=== PATIENT | female | born 1945 | race Caucasian/White ===

== ENCOUNTER 2020-12-08 11:09 | Outpatient (CLI) | payer MEDICARE | END 2020-12-08 11:10 | disposition home or self-care (01) | LOC: CSHWCC 11:09 | PROVIDERS: ATTEND Nurse Practitioner Family | DX: S31.609A Unspecified open wound of abdominal wall, unspecified quadrant with penetration into peritoneal cavity, initial encounter (principal); E78.5 Hyperlipidemia, unspecified; F32.9 Major depressive disorder, single episode, unspecified; I48.91 Unspecified atrial fibrillation; I50.33 Acute on chronic diastolic (congestive) heart failure; J45.909 Unspecified asthma, uncomplicated; M32.10 Systemic lupus erythematosus, organ or system involvement unspecified; N18.30 Chronic kidney disease, stage 3 unspecified | CPT/HCPCS: 97605; 99212; G0463 ==

== ENCOUNTER 2020-12-15 14:59 | Outpatient (CLI) | payer MEDICARE | END 2020-12-15 15:00 | disposition home or self-care (01) | LOC: CSHWCC 14:59 | PROVIDERS: ATTEND Nurse Practitioner Family | DX: S31.609D Unspecified open wound of abdominal wall, unspecified quadrant with penetration into peritoneal cavity, subsequent encounter (principal); E11.8 Type 2 diabetes mellitus with unspecified complications; E11.22 Type 2 diabetes mellitus with diabetic chronic kidney disease; N18.30 Chronic kidney disease, stage 3 unspecified; E78.5 Hyperlipidemia, unspecified; F32.9 Major depressive disorder, single episode, unspecified; I48.91 Unspecified atrial fibrillation; I50.33 Acute on chronic diastolic (congestive) heart failure; J45.909 Unspecified asthma, uncomplicated; M32.10 Systemic lupus erythematosus, organ or system involvement unspecified | CPT/HCPCS: 97139; G0463; 99213 ==

== ENCOUNTER 2020-12-18 11:03 | Outpatient (CLI) | payer MEDICARE | END 2020-12-18 11:04 | disposition home or self-care (01) | LOC: CSHWCC 11:03 | PROVIDERS: ATTEND Nurse Practitioner Family | DX: S31.609D Unspecified open wound of abdominal wall, unspecified quadrant with penetration into peritoneal cavity, subsequent encounter (principal); I13.0 Hypertensive heart and chronic kidney disease with heart failure and stage 1 through stage 4 chronic kidney disease, or unspecified chronic kidney disease; I50.33 Acute on chronic diastolic (congestive) heart failure; E11.22 Type 2 diabetes mellitus with diabetic chronic kidney disease; N18.30 Chronic kidney disease, stage 3 unspecified; J45.909 Unspecified asthma, uncomplicated; M32.10 Systemic lupus erythematosus, organ or system involvement unspecified; E78.5 Hyperlipidemia, unspecified; F32.9 Major depressive disorder, single episode, unspecified; I48.91 Unspecified atrial fibrillation; E11.8 Type 2 diabetes mellitus with unspecified complications | CPT/HCPCS: 97605 ==

== ENCOUNTER 2020-12-22 11:06 | Outpatient (CLI) | payer MEDICARE | END 2020-12-22 11:07 | disposition home or self-care (01) | LOC: CSHWCC 11:06 | PROVIDERS: ATTEND Nurse Practitioner Family | DX: S31.609D Unspecified open wound of abdominal wall, unspecified quadrant with penetration into peritoneal cavity, subsequent encounter (principal); E78.5 Hyperlipidemia, unspecified; E11.8 Type 2 diabetes mellitus with unspecified complications; F32.9 Major depressive disorder, single episode, unspecified; I50.33 Acute on chronic diastolic (congestive) heart failure; M32.10 Systemic lupus erythematosus, organ or system involvement unspecified; I48.91 Unspecified atrial fibrillation; J45.909 Unspecified asthma, uncomplicated; N18.30 Chronic kidney disease, stage 3 unspecified | CPT/HCPCS: 97139; G0463; 97605; 99212 ==

== ENCOUNTER 2020-12-31 11:21 | Outpatient (CLI) | payer MEDICARE | END 2020-12-31 11:22 | disposition home or self-care (01) | LOC: CSHWCC 11:21 | PROVIDERS: ATTEND Nurse Practitioner Family | DX: S31.609D Unspecified open wound of abdominal wall, unspecified quadrant with penetration into peritoneal cavity, subsequent encounter (principal); I48.91 Unspecified atrial fibrillation; E78.5 Hyperlipidemia, unspecified; E11.8 Type 2 diabetes mellitus with unspecified complications; F32.9 Major depressive disorder, single episode, unspecified; I50.33 Acute on chronic diastolic (congestive) heart failure; J45.909 Unspecified asthma, uncomplicated; M32.10 Systemic lupus erythematosus, organ or system involvement unspecified; N18.30 Chronic kidney disease, stage 3 unspecified | CPT/HCPCS: 97605 ==

== ENCOUNTER 2021-01-05 11:18 | Outpatient (CLI) | payer MEDICARE | END 2021-01-05 11:19 | disposition home or self-care (01) | LOC: CSHWCC 11:18 | PROVIDERS: ATTEND Nurse Practitioner Family | DX: S31.609D Unspecified open wound of abdominal wall, unspecified quadrant with penetration into peritoneal cavity, subsequent encounter (principal); E78.5 Hyperlipidemia, unspecified; F32.9 Major depressive disorder, single episode, unspecified; I48.91 Unspecified atrial fibrillation; I50.33 Acute on chronic diastolic (congestive) heart failure; M32.10 Systemic lupus erythematosus, organ or system involvement unspecified; J45.909 Unspecified asthma, uncomplicated; E11.22 Type 2 diabetes mellitus with diabetic chronic kidney disease; N18.30 Chronic kidney disease, stage 3 unspecified | CPT/HCPCS: 97605 ==

== ENCOUNTER 2021-01-12 12:22 | Outpatient (CLI) | payer MEDICARE | END 2021-01-12 12:23 | disposition home or self-care (01) | LOC: CSHWCC 12:22 | PROVIDERS: ATTEND Nurse Practitioner Family | DX: S31.609D Unspecified open wound of abdominal wall, unspecified quadrant with penetration into peritoneal cavity, subsequent encounter (principal); E11.22 Type 2 diabetes mellitus with diabetic chronic kidney disease; N18.30 Chronic kidney disease, stage 3 unspecified; I50.33 Acute on chronic diastolic (congestive) heart failure; E11.8 Type 2 diabetes mellitus with unspecified complications; E78.5 Hyperlipidemia, unspecified; F32.9 Major depressive disorder, single episode, unspecified; I48.91 Unspecified atrial fibrillation; J45.909 Unspecified asthma, uncomplicated; M32.10 Systemic lupus erythematosus, organ or system involvement unspecified | CPT/HCPCS: 99213; G0463 ==

== ENCOUNTER 2021-01-19 11:31 | Outpatient (CLI) | payer MEDICARE | END 2021-01-19 11:32 | disposition home or self-care (01) | LOC: CSHWCC 11:31 | PROVIDERS: ATTEND Nurse Practitioner Family | DX: S31.609D Unspecified open wound of abdominal wall, unspecified quadrant with penetration into peritoneal cavity, subsequent encounter (principal); I50.33 Acute on chronic diastolic (congestive) heart failure; E11.22 Type 2 diabetes mellitus with diabetic chronic kidney disease; N18.30 Chronic kidney disease, stage 3 unspecified; J45.909 Unspecified asthma, uncomplicated; E78.5 Hyperlipidemia, unspecified; F32.9 Major depressive disorder, single episode, unspecified; I48.91 Unspecified atrial fibrillation; M32.10 Systemic lupus erythematosus, organ or system involvement unspecified; E11.8 Type 2 diabetes mellitus with unspecified complications | CPT/HCPCS: 99213; G0463 ==

== ENCOUNTER 2021-01-26 11:56 | Outpatient (CLI) | payer MEDICARE | END 2021-01-26 11:57 | disposition home or self-care (01) | LOC: CSHWCC 11:56 | PROVIDERS: ATTEND Nurse Practitioner Family | DX: S31.609A Unspecified open wound of abdominal wall, unspecified quadrant with penetration into peritoneal cavity, initial encounter (principal); E11.8 Type 2 diabetes mellitus with unspecified complications; E78.5 Hyperlipidemia, unspecified; F32.9 Major depressive disorder, single episode, unspecified; I48.91 Unspecified atrial fibrillation; I50.33 Acute on chronic diastolic (congestive) heart failure; J45.909 Unspecified asthma, uncomplicated; M32.10 Systemic lupus erythematosus, organ or system involvement unspecified; N18.30 Chronic kidney disease, stage 3 unspecified | CPT/HCPCS: 11042 ==

== ENCOUNTER 2021-02-09 16:35 | Outpatient (CLI) | payer MEDICARE | END 2021-02-09 16:36 | disposition home or self-care (01) | LOC: CSHWCC 16:35 | PROVIDERS: ATTEND Nurse Practitioner Family | DX: S31.609D Unspecified open wound of abdominal wall, unspecified quadrant with penetration into peritoneal cavity, subsequent encounter (principal); E11.22 Type 2 diabetes mellitus with diabetic chronic kidney disease; N18.30 Chronic kidney disease, stage 3 unspecified; I50.33 Acute on chronic diastolic (congestive) heart failure; I48.91 Unspecified atrial fibrillation; J45.909 Unspecified asthma, uncomplicated; E11.8 Type 2 diabetes mellitus with unspecified complications; F32.9 Major depressive disorder, single episode, unspecified; E78.5 Hyperlipidemia, unspecified; M32.10 Systemic lupus erythematosus, organ or system involvement unspecified ==

== ENCOUNTER 2021-02-23 16:44 | Outpatient (CLI) | payer MEDICARE | END 2021-02-23 16:45 | disposition home or self-care (01) | LOC: CSHWCC 16:44 | PROVIDERS: ATTEND Nurse Practitioner Family | DX: S31.609D Unspecified open wound of abdominal wall, unspecified quadrant with penetration into peritoneal cavity, subsequent encounter (principal); E11.8 Type 2 diabetes mellitus with unspecified complications; E78.5 Hyperlipidemia, unspecified; F32.9 Major depressive disorder, single episode, unspecified; I48.91 Unspecified atrial fibrillation; I50.33 Acute on chronic diastolic (congestive) heart failure; J45.909 Unspecified asthma, uncomplicated; M32.10 Systemic lupus erythematosus, organ or system involvement unspecified; N18.30 Chronic kidney disease, stage 3 unspecified | CPT/HCPCS: 97139; G0463; 99213 ==

== ENCOUNTER 2022-01-28 13:54 | Outpatient (CLI) | payer MEDICARE | END 2022-01-28 13:55 | disposition home or self-care (01) | LOC: CSHMRI 13:54 | PROVIDERS: ATTEND Internal Medicine | DX: M54.16 Radiculopathy, lumbar region (principal); K11.8 Other diseases of salivary glands; M47.816 Spondylosis without myelopathy or radiculopathy, lumbar region; Z98.890 Other specified postprocedural states; G95.9 Disease of spinal cord, unspecified | CPT/HCPCS: 70491; 72100; 72148 ==